=== PATIENT | male | born 1975 | race Hispanic/Latino ===

== ENCOUNTER 2018-07-14 11:34 | Day surgery (SDC) | payer BC ==
[~2018-07-14 11:34] MED LIST: ADRENALINE P/F ONE
[2018-07-14] MEDS ORDERED: LACTATED RINGERS 1,000 ML IV SCH (12:22)
[2018-07-14] MEDS ORDERED: VERSED IV NR (12:22)
--- NOTE | 2018-07-14 12:26 | Anesthesia Consultation ---
Anesthesia Consult and Med Hx Date of service: 07/14/18 - Airway Anesthetic Teeth Evaluation: Good ROM Head & Neck: Adequate Mental/Hyoid Distance: Adequate Mallampati Class: Class I Intubation Access Assessment: Probably Good - Pulmonary Exam CTA: Yes - Cardiac Exam Cardiac Exam: RRR - Pre-Operative Health Status ASA Pre-Surgery Classification: ASA2 Proposed Anesthetic Plan: General - Pulmonary Hx Smoking: No Hx Respiratory Symptoms: No Hx Sleep Apnea: No (ANGELITO PRE SCREEN LOW RISK) - Cardiovascular System Hx Hypertension: Yes (X 4 YRS; took lisinopril 20mg last night) Hx Heart Attack/AMI: No - Central Nervous System Hx Neuromuscular Disorder: No Hx Psychiatric Problems: No - Gastrointestinal Hx Gastroesophageal Reflux Disease: No - Endocrine Hx Renal Disease: No Hx Liver Disease: No Hx Non-Insulin Dependent Diabetes: No Hx Thyroid Disease: No - Hematic Hx Anemia: No - Other Systems Hx Cancer: No - Additional Comments Anesthesia Medical History Comments: No GAC, No FHAC
--- NOTE | 2018-07-14 12:27 | Anesthesia Day of Surgery ---
Anesthesia Day of Surgery - Day of Surgery Patient Examined: Yes Patient H&P Reviewed: Yes Patient is NPO: Yes (1899) Beta Blockers: No (n/a) Cardiac Clearance: No (n/a) Pulmonary Clearance: No (n/a)
[2018-07-14] MEDS ORDERED: ANCEF/STERILE WATER 2 GM/20 ML IV NR (12:31)
[2018-07-14] MEDS ORDERED: DILAUDID IV PRN (12:53)
[2018-07-14] MEDS ORDERED: SUBLIMAZE IV PRN (12:53)
[2018-07-14] MEDS ORDERED: NARCAN 0.4 MG/1 ML IV PRN (12:53)
[2018-07-14] MEDS ORDERED: ZOFRAN IV PRN (12:53)
[2018-07-14] MEDS ORDERED: XYLOCAINE MPF 2% ONE (13:02)
[2018-07-14] MEDS ORDERED: ZOFRAN ONE (13:02)
[2018-07-14] MEDS ORDERED: DECADRON ONE (13:02)
[2018-07-14] MEDS ORDERED: SUBLIMAZE ONE (13:03)
[2018-07-14] MEDS ORDERED: DIPRIVAN 10 MG/ML IV ONE (13:03)
--- NOTE | 2018-07-14 16:06 | Post Operative Note ---
Date of procedure: 07/14/18 Pre-op diagnosis: elective sterilization Post-op diagnosis: same Findings: thick L cord Procedure: bilat vas Anesthesia: GETA Surgeon: BENSON JOHN Estimated blood loss: minimal Pathology: list (vasa) Specimen disposition: to lab Condition: stable Disposition: PACU
[2018-07-14] MEDS ORDERED: ROBINUL ONE (16:07)
--- NOTE | 2018-07-14 16:07 | Discharge Summary ---
Short Stay Discharge Plan Activity: avoid flexion, other (no straining ) Weight Bearing Status: Full Weight Bearing Diet: low cholesterol, low salt Wound: open to air Special Instructions: other (ice in rr and 24 hrs ) Follow up with: TEO CARCAMO MD [Primary Care Provider] - 7 Days BENSON JOHN MD [Staff Physician] - 7 Days
[2018-07-14] MEDS ORDERED: NACL 0.9% 1000 ML 1,000 ML ONE (16:16)
--- NOTE | 2018-07-14 16:42 | Operative Report ---
PREOPERATIVE DIAGNOSIS: Elective sterilization. POSTOPERATIVE DIAGNOSIS: Elective sterilization. PROCEDURE: Bilateral partial vasectomy. SURGEON: Good Islas MD ANESTHESIA: General. FINDINGS: This is a gentleman with a very thick left cord. I do not know it is from an injury years ago, but the left vas was thickened in the cord. Right vas is normal. He now presents for elective sterilization. DESCRIPTION OF PROCEDURE: The patient was brought to the operating room and placed on the operating table. Following induction of anesthesia, placed in supine position, prepped and draped in usual sterile fashion. After the timeout, the right vas was isolated and an incision was made approximately 1.5 cm and the vas was delivered with towel clips. We dissected the vas free, it was doubly tied, the lumen was cauterized and it was oversewn, with a 4-0 Vicryl. It was tied with 0 Vicryl. Once hemostasis was excellent, it was placed in its anatomical position and the left vas through the thickened cord was identified and we were able to isolate it and with a towel clip and brought it through the incision. It was dissected free. It was thickened. There was some fatty tissue around it, which was dissected free. Once it was isolated, it was doubly tied with 0 Vicryl, lumen cauterized and one side was oversewn with a 4-0 Vicryl. The patient tolerated the procedure well. Wound was irrigated. There was no bleeding and closure with ____ sutures of chromic, brought to recovery in stable condition. JOB# [id number] ELIZABETH/OMID
[2018-07-14 17:03] VITALS: BP 123/64
--- NOTE | 2018-07-15 08:50 | Post Anesthesia Evaluation ---
- Post Anesthesia Evaluation Patient Participated: Yes Airway Patent: Yes Stable Respiratory Function: Yes Nausea/Vomiting: No Temp > 96.8F: Yes Pain Manageable: Yes Adequeate Hydration: Yes Anesthesia Complications: No
== END 2018-07-14 18:10 | disposition home or self-care (01) ==
LOC: OR 11:34
PROVIDERS: ATTEND Urology
DX: Z30.2 Encounter for sterilization (principal); I10 Essential (primary) hypertension; Z98.890 Other specified postprocedural states; Z79.899 Other long term (current) drug therapy
CPT/HCPCS: 55250; 88302; J0171; J0690; J1100; J2405; J2704; J3010; J7030; J7120; 88304; J2250